=== PATIENT | female | born 1970 | race Caucasian/White ===

== ENCOUNTER 2016-08-28 10:32 | Emergency (ER) | payer OTHER ==
[~2016-08-28] VITALS: Ht 160 cm; Wt 58.8 kg
[2016-08-28 10:40] VITALS: BP 140/99; PULSE 92; RESP 18; TEMP 98.4; O2SAT 98
--- NOTE | 2016-08-28 11:08 | PD ---
HPI Chief Complaint: Neuro Symptoms/ Deficits Time Seen by Provider: 10:54 Travel History International Travel<30 days: No Contact w/Intl Traveler<30days: No Traveled to known affect area: No History of Present Illness HPI The patient was seen and examined in the presence of the nurse. This patient went to bed feeling fine. She woke up at 5:30 this morning and reports that she had a room spinning vertigo which was brief but she had one hour of pins and needles in her left arm in a circumferential fashion all the way down through her hand. She says that her left hand was weak and uncoordinated. 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 It resolved spontaneously and at this time she is completely back to normal. She did not have speech slurring or confusion or headache. She has no diagnosed medical problems but never goes to a doctor and has not seen one in at least 10 years. Symptoms severity was moderate but resolved on its own with no alleviating factors. Duration was one hour. PFSH Past Medical History Medical History: Denies Significant Hx Tetanus Vaccination: > 5 Years Influenza Vaccination: No ?: Not LMP: 08/15/16 Past Surgical History Other Surgery: Yes (Rt. achilles tendon release) Social History Alcohol Use: Yes (Glass of wine daily) Tobacco Use: No Substance Use: No Allergies-Medications (Allergen,Severity, Reaction): Coded Allergies: No Known Allergies (Unverified , 08/28/16) Reported Meds & Prescriptions Reported Meds & Active Scripts Active No Active Prescriptions or Reported Medications Review of Systems General / Constitutional: No: Fever Eyes: No: Visual changes HENT: Positive: Vertigo, No: Headaches Cardiovascular: No: Chest Pain or Discomfort Respiratory: No: Shortness of Breath Gastrointestinal: No: Abdominal Pain Genitourinary: No: Dysuria Musculoskeletal: Positive: Weakness, No: Pain Skin: No Rash Neurologic: Positive: Weakness, Dizziness, Paresthesia Psychiatric: No: Depression Endocrine: No: Polydipsia Hematologic/Lymphatic: No: Easy Bruising Physical Exam Narrative GENERAL: Well-nourished, well-developed patient in no apparent distress. SKIN: Focused skin assessment reveals no rash and nodules. Skin is Warm and dry. HEAD: Atraumatic. Normocephalic. EYES: Pupils equal and round. No scleral icterus. No injection or drainage. ENT: No nasal bleeding or discharge. Mucous membranes pink and moist. NECK: Trachea midline. No JVD. CARDIOVASCULAR: Regular rate and rhythm. No murmur appreciated. RESPIRATORY: No accessory muscle use. Clear to auscultation. Breath sounds equal bilaterally. GASTROINTESTINAL: Abdomen soft, non-tender, nondistended. Hepatic and splenic margins not palpable. MUSCULOSKELETAL: No obvious deformities. No clubbing. No cyanosis. No edema. NEUROLOGICAL: Awake and alert. No obvious cranial nerve deficits. Motor grossly within normal limits. Normal speech. PSYCHIATRIC: Appropriate mood and affect; insight and judgment normal. Data Data Last Documented VS Vital Signs Date Time Temp Pulse Resp B/P Pulse Ox O2 Delivery O2 Flow Rate FiO2 08/28/16 11:25 98 Room Air 08/28/16 10:40 98.4 92 18 140/99 Orders Electrocardiogram (08/28/16 11:03) Prothrombin Time / Inr (Pt) (08/28/16 11:03) Act Partial Throm Time (Ptt) (08/28/16 11:03) Complete Blood Count With Diff (08/28/16 11:03) Basic Metabolic Panel (Bmp) (08/28/16 11:03) Ct Brain W/O Iv Contrast(Rout) (08/28/16 11:03) Ecg Monitoring (08/28/16 11:03) Iv Access Insert/Monitor (08/28/16 11:03) Oximetry (08/28/16 11:03) Blood Glucose (08/28/16 11:03) Sodium Chloride 0.9% Flush (Ns Flush) (08/28/16 11:15) Beta Hcg (Quant/Titer) (08/28/16 11:25) Labs Laboratory Tests Test 08/28/16 11:25 White Blood Count 5.0 TH/MM3 Red Blood Count 4.63 MIL/MM3 Hemoglobin 13.1 GM/DL Hematocrit 39.4 % Mean Corpuscular Volume 85.1 FL Mean Corpuscular Hemoglobin 28.3 PG Mean Corpuscular Hemoglobin 33.2 % Concent Red Cell Distribution Width 12.5 % Platelet Count 243 TH/MM3 Mean Platelet Volume 7.6 FL Neutrophils (%) (Auto) 76.9 % Lymphocytes (%) (Auto) 16.3 % Monocytes (%) (Auto) 5.7 % Eosinophils (%) (Auto) 0.6 % Basophils (%) (Auto) 0.5 % Neutrophils # (Auto) 3.9 TH/MM3 Lymphocytes # (Auto) 0.8 TH/MM3 Monocytes # (Auto) 0.3 TH/MM3 Eosinophils # (Auto) 0.0 TH/MM3 Basophils # (Auto) 0.0 TH/MM3 CBC Comment DIFF FINAL Differential Comment Prothrombin Time 9.9 SEC Prothromb Time International 0.9 RATIO Ratio Activated Partial 24.4 SEC Thromboplast Time Sodium Level 142 MEQ/L Potassium Level 4.2 MEQ/L Chloride Level 110 MEQ/L Carbon Dioxide Level 24.9 MEQ/L Anion Gap 7 MEQ/L Blood Urea Nitrogen 13 MG/DL Creatinine 0.70 MG/DL Estimat Glomerular Filtration 90 ML/MIN Rate Random Glucose 87 MG/DL Calcium Level 8.4 MG/DL Human Chorionic Gonadotropin, 2 MIU/ML Quant MDM Medical Decision Making Medical Screen Exam Complete: Yes Emergency Medical Condition: Yes Medical Record Reviewed: Yes Differential Diagnosis TIA, CVA, anxiety, radiculopathy or paresthesia Narrative Course I have reviewed the patient's electronic medical record. IV placed Accu-Chek 91 I reviewed her EKG which shows sinus rhythm without ectopy Extended cardiac monitoring shows sinus rhythm without ectopy Brain CT is normal CBC is normal Metabolic profile is normal Coagulation studies are normal Beta hCG is negative Workup is normal. She remains asymptomatic. However symptoms are concerning for TIA given her left-sided upper extremity weakness. I recommended 23 hour observation on telemetry for neurologic evaluation. She thought about it for while and discussed with her and is decided to decline my recommendation. She will sign out AGAINST MEDICAL ADVICE. We discussed some signs and symptoms of stroke. I advised her to return if she worsens or changes her mind. I gave her an aspirin here and suggested she take a daily aspirin until she could discuss it with her physician Diagnosis Primary Impression: Weakness of left upper extremity Additional Impressions: Paresthesia Vertigo Scripts No Active Prescriptions or Reported Meds Disposition: 07 AGAINST MEDICAL ADVICE Kyle Acevedo MD Aug 28, 2016 11:08
[2016-08-28] MEDS ORDERED: SODIUM CHLORIDE 0.9% FLUSH 10 ML FLUSH IVF PRN (11:15)
--- NOTE | 2016-08-28 11:23 | RADRPT ---
EXAM DATE/TIME: 08/28/2016 11:06 [facility] COMPARISON: No previous studies available for comparison. INDICATIONS : Dizziness. RADIATION DOSE: 59.75 CTDIvol (mGy) MEDICAL HISTORY : None SURGICAL HISTORY : None. ENCOUNTER: Initial ACUITY: 1 day PAIN SCALE: 0/10 LOCATION: cranial TECHNIQUE: Multiple contiguous axial images were obtained of the head. Using automated exposure control and adj ustment of the mA and/or kV according to patient size, radiation dose was kept as low as reasonably a chievable to obtain optimal diagnostic quality images. DICOM format image data is available electro nically for review and comparison. FINDINGS: CEREBRUM: The ventricles are normal for age. No evidence of midline shift, mass lesion, hemorrhage or acute in farction. No extra-axial fluid collections are seen. POSTERIOR FOSSA: The cerebellum and brainstem are intact. The 4th ventricle is midline. The cerebellopontine angle i s unremarkable. EXTRACRANIAL: The visualized portion of the orbits is intact. SKULL: The calvaria is intact. No evidence of skull fracture. CONCLUSION: No acute disease. Michael Hall MD on August 28, 2016 at 11:20 Board Certified Radiologist. This report was verified electronically.
[2016-08-28 11:25] VITALS: O2SAT 98
[2016-08-28 11:33] LABS: AUTOMATED NEUTROPHIL # 3.9 TH/MM3 (1.8-7.7); BASOPHIL % 0.5 % (0.0-2.0); EOSINOPHIL % 0.6 % (0.0-4.0); HEMATOCRIT 39.4 % (35.0-46.0); LYMPH % 16.3 % (9.0-44.0); LYMPHOCYTE # 0.8 TH/MM3 (1.0-4.8); MEAN CELL VOLUME 85.1 FL (80.0-100.0); MEAN CORPUSCULAR HEMOGLOBIN 28.3 PG (27.0-34.0); MEAN CORPUSCULAR HGB CONC 33.2 % (32.0-36.0); MONO % 5.7 % (0.0-8.0); NEUT % 76.9 % (16.0-70.0); PLATELET COUNT 243 TH/MM3 (150-450); RED BLOOD COUNT 4.63 MIL/MM3 (4.00-5.30); RED CELL DISTRIBUTION WIDTH 12.5 % (11.6-17.2)
[2016-08-28 11:34] LABS: HEMO FLAGS DIFF FINAL
[2016-08-28 11:41] LABS: POTASSIUM 4.2 MEQ/L (3.5-5.1)
[2016-08-28 11:44] LABS: BICARBONATE 24.9 MEQ/L (21.0-32.0)
[2016-08-28 11:57] LABS: APTT (PATIENT) 24.4 SEC (24.3-30.1); INTERNATIONAL NORMALIZED RATIO 0.9 RATIO; PROTHROMBIN TIME - PATIENT 9.9 SEC (9.8-11.6)
[2016-08-28] MEDS ORDERED: ASPIRIN 325 MG TAB PO ONE (12:45)
[2016-08-28 13:00] VITALS: BP 113/79; PULSE 76; RESP 16; O2SAT 99
--- NOTE | 2016-08-29 11:53 | EKG ---
Date Performed: 08/28/2016 Time Performed: 11:10:27 PTAGE: 45 years EKG: Sinus rhythm NORMAL ECG NO PREVIOUS TRACING DOCTOR: David Hamilton Interpretating Date/Time 08/29/2016 11:49:02
== END 2016-08-28 13:05 | disposition left against medical advice (07) ==
LOC: PHED 10:32
DX: R53.1 Weakness (principal); R20.2 Paresthesia of skin; R42 Dizziness and giddiness
CPT/HCPCS: 70450; 80048; 84702; 85025; 85610; 85730; 93005